=== PATIENT | female | born 1980 | race Caucasian/White ===

== ENCOUNTER 2023-04-11 21:25 | Emergency (ER) | payer SELFPAY ==
[2023-04-11] MEDS ORDERED: Sodium Chloride 0.9% 10 ML Syringe FLUSH PRN (21:29)
[2023-04-11] MEDS ORDERED: Ondansetron 4 MG/2 ML SDV IVPUSH ONE (21:29)
[2023-04-11] MEDS ORDERED: Sodium Chloride 0.9% 1,000 ML IV ONE (21:29)
[2023-04-11] MEDS: Sodium Chloride 0.9% 2.5 ML Syringe FLUSH PRN ×2 (21:37→21:38)
[2023-04-11 21:58] LABS: BASE EXCESS VENOUS 0.1 (-2.0-3.0); BASOPHILS ABSOLUTE AUTO 0.04 K/uL (0.00-0.20); BASOPHILS PERCENT AUTO 0.3 % (0.0-1.0); BICARBONATE,VENOUS 27 mEq/L (23-28); EOSINOPHILS ABSOLUTE AUTO 0.09 K/uL (0.00-0.45); EOSINOPHILS PERCENT AUTO 0.7 % (0.0-6.0); HEMATOCRIT 43.4 % (37.0-47.0); HEMOGLOBIN 15.2 g/dL (12.0-16.0); IMMATURE GRAN ABSOLUTE AUTO 0.07 K/uL (0.00-0.05); IMMATURE GRAN PERCENT AUTO 0.5 % (0.0-0.4); LYMPHOCYTES ABSOLUTE AUTO 3.16 K/uL (1.00-4.80); MEAN CORPUSCULAR HEMOGLOBIN 34.2 pg (28.0-32.0); MEAN CORPUSCULAR VOLUME 97.5 fL (83.0-99.0); MEAN PLATELET VOLUME 9.5 fL (9.4-12.3); MONOCYTES ABSOLUTE AUTO 0.58 K/uL (0.00-0.80); MONOCYTES PERCENT AUTO 4.2 % (0.0-8.0); NEUTROPHILS ABSOLUTE AUTO 9.82 K/uL (1.80-7.70); NEUTROPHILS PERCENT AUTO 71.3 % (41.0-71.0); PCO2 VENOUS 51 mmHG (41-51); PH,VENOUS 7.33 (7.31-7.41); PLATELET COUNT,PLT 259 K/uL (150-400); RED BLOOD CELL COUNT 4.45 M/uL (4.10-5.30); WHITE BLOOD CELL COUNT,WBC 13.76 K/uL (3.9-11.3)
[2023-04-11 22:00] LABS: PO2 VENOUS < 30 mmHG
[2023-04-11 22:27] LABS: A/G RATIO 1.1 (0.9-1.6); ALANINE AMINOTRANSFERASE,ALT 25 IU/L (14-63); ALBUMIN 3.8 g/dL (3.4-5.0); ALKALINE PHOSPHATASE 71 U/L (46-116); ASPARTATE AMNIOTRANSFERASE,AST 13 IU/L (15-37); BILIRUBIN TOTAL 0.2 mg/dL (0.2-1.0); BLOOD UREA NITROGEN,BUN 7 mg/dL (7.0-18.0); CALCIUM 8.6 mg/dL (8.5-10.1); CHLORIDE,CL 106 mmol/L (98-107); CREATINE KINASE,CK 106 U/L (26-308); CREATININE 0.6 mg/dL (0.6-1.0); EST CRCL DRUG DOSING (CG) 89.35 mL/min; GLUCOSE RANDOM 86 mg/dL (74-106); LIPASE 24 U/L (16-77); MAGNESIUM 2.1 mg/dL (1.8-2.4); POTASSIUM,K 3.7 mmol/L (3.5-5.1); PROTEIN TOTAL,TP 7.3 g/dL (6.4-8.2); SODIUM,NA 146 mmol/L (136-145)
[2023-04-11 22:28] LABS: ESTIMATED GFR 113 mL/min (>60)
[2023-04-11] MEDS ORDERED: levETIRAcetam 500 MG Tab PO STA (23:10)
[2023-04-11] MEDS ORDERED: Valproate Sodium 500 MG/5 ML SDV IV STA (23:17)
[2023-04-12] MEDS ORDERED: LORazepam 1 MG Tab PO ONE (00:04)
== END 2023-04-12 01:13 | disposition home or self-care (01) ==
LOC: MW.ED 21:25
DX: R56.9 Unspecified convulsions (principal); F10.229 Alcohol dependence with intoxication, unspecified
CPT/HCPCS: 36415; 70450; 71045; 80053; 80307; 82550; 82803; 83690; 83735; 84484; 85025; 93005; 96365; 96375; 99285; A9270; J2405; J3490; J7030; 93010; 99284

== ENCOUNTER 2024-09-20 02:22 | Emergency (ER) | payer OTHER | END 2024-09-20 03:30 | disposition home or self-care (01) | LOC: MW.ED 02:22 | DX: R56.9 Unspecified convulsions (principal) | CPT/HCPCS: 99282; 99283 ==